=== PATIENT | female | born 1990 | race Caucasian/White ===

== ENCOUNTER 2020-08-09 14:43 | Emergency (ER) | payer OTHER | END 2020-08-09 16:40 | disposition home or self-care (01) | LOC: ERS 14:43 | DX: T75.4XXA Electrocution, initial encounter (principal); F41.9 Anxiety disorder, unspecified | CPT/HCPCS: 36415; 84484; 93005 ==

== ENCOUNTER 2021-11-19 19:21 | Emergency (ER) | payer OTHER, SELFPAY ==
[2021-11-19 20:08] LABS: Base Excess (BEa) -1.7 mEq/L (-2.0 to +3.0); CO2 Tension 38.9 mmHg (35.0-45.0); Calcium, Ionized (arterial) 1.19 mmol/L (1.12-1.30); Carboxyhemoglobin (COHb) 0.5 gm% (0.0-3.0); Hemoglobin (Hb) 12.7 g/dL (12.0-16.0); O2 Tension (PaO2), arterial 131.9 mmHg (80.0-100.0); Potassium - ABG Lab 3.74 mmol/L (3.70-5.30); pH, Arterial 7.39 (7.35-7.45)
[2021-11-19 20:17] LABS: ALV-art Gradient 19.115 mmHg (0-20); Puncture Site RRA
[2021-11-19 20:29] LABS: #Basophils 0.1 thou/uL (0.0-0.2); #Eosinphils 0.2 thou/uL (0.0-0.7); #Lymphocytes 2.3 thou/uL (1.20-3.40); #Monocytes 0.7 thou/uL (0.11-0.59); #Neutrophils 6.9 thou/uL (1.40-6.50); %Basophils 0.9 % (0.0-1.0); %Eosinophils 2.2 % (0.0-10.0); %Lymphocytes 22.6 % (21.0-51.0); %Monocytes 6.8 % (0.0-10.0); %Neutrophils 67.5 % (42.0-75.0); Mean Corpuscular HGB CONC 33.7 g/dL (32.0-36.0); Mean Corpuscular Hemoglobin 27.9 pg (27.0-31.0); Mean Corpuscular Volume 82.9 fL (78.0-98.0); Mean Platelet Volume 7.6 fL (7.4-10.4); Platelet Count 329 thou/uL (130-400); RBC Distribution Width 12.7 % (11.5-14.5); Red Blood Cell (RBC) Count 4.28 mill/uL (4.20-5.40); White Blood Cell (WBC) Count 10.1 thou/uL (4.8-10.8)
[2021-11-19 20:32] LABS: BHCG - Serum Negative (NEGATIVE); Pregs Control Background? CLEAR/WHITE (CLR/WHITE); Pregs Control Bar Appear? YES (CONTROL BAR)
[2021-11-19 20:43] LABS: ALT (SGPT) 13 U/L (8-55); AST (SGOT) 17 U/L (5-34); Albumin 4.1 g/dL (3.5-5.0); Alkaline Phosphatase 94 U/L (40-110); Anion Gap 12 mmol/L (10-20); BUN (Urea Nitrogen) 16 mg/dL (7.0-18.7); Bilirubin, Total Less than 0.2 mg/dL (0.2-1.2); Calc. Creatinine Clearance 0 mL/min (70-130); Calcium 9.5 mg/dL (7.8-10.44); Carbon Dioxide 24 mmol/L (22-29); Chloride 108 mmol/L (98-107); Globulin 3.2 g/dL (2.4-3.5); Glucose 107 mg/dL (70-105); Potassium 3.7 mmol/L (3.5-5.1); Protein, Total 7.3 g/dL (6.0-8.3); Sodium 140 mmol/L (136-145)
== END 2021-11-19 21:36 | disposition home or self-care (01) ==
LOC: ERS 19:21
DX: T59.811A Toxic effect of smoke, accidental (unintentional), initial encounter (principal)
CPT/HCPCS: 36415; 36600; 71045; 80053; 82805; 84703; 85025; J7620

== ENCOUNTER 2022-12-09 15:30 | Outpatient (CLI) | payer BC | END 2022-12-09 15:31 | disposition home or self-care (01) | LOC: BICULT 15:30 | PROVIDERS: ATTEND Family Medicine | DX: E04.9 Nontoxic goiter, unspecified (principal) | CPT/HCPCS: 76536 ==

== ENCOUNTER 2023-07-29 08:47 | Outpatient (CLI) | payer BC | END 2023-07-29 08:48 | disposition home or self-care (01) | LOC: ULT 08:47 | PROVIDERS: ATTEND Surgery | DX: R10.11 Right upper quadrant pain (principal) | CPT/HCPCS: 76705 ==

== ENCOUNTER 2025-09-08 03:58 | Inpatient (IN) | payer BC ==
[2025-09-08] MEDS ORDERED: Ondansetron PF 4 MG/2 ML Vial ONE ×2 (04:31→05:04)
[2025-09-08 05:07] LABS: BHCG - Serum Negative (NEGATIVE); Pregs Control Background? CLEAR/WHITE (CLR/WHITE); Pregs Control Bar Appear? YES (CONTROL BAR)
[2025-09-08 05:11] LABS: #Basophils 0.08 10x3/uL (0.0-0.2); #Eosinophils 0.60 10x3/uL (0.0-0.7); #Monocytes 0.37 10x3/uL (0.11-0.59); #Neutrophils 3.00 10x3/uL (1.40-6.50); %Basophils 1.2 % (0.0-1.0); %Eosinophils 8.8 % (0.0-10.0); %Lymphocytes 40.1 % (21.0-51.0); %Monocytes 5.4 % (0.0-10.0); %Neutrophils 44.1 % (42.0-75.0); Hematocrit 41.4 % (36.0-47.0); Hemoglobin 13.3 g/dL (12.0-16.0); Mean Corpuscular Hemoglobin 27.9 pg (27.0-31.0); Mean Corpuscular Volume 87.0 fL (78.0-98.0); Platelet Count 359 10x3/uL (130-400); Red Blood Cell (RBC) Count 4.76 mill/uL (4.20-5.40); White Blood Cell (WBC) Count 6.81 10x3/uL (4.8-10.8)
[2025-09-08 05:15] LABS: ALT (SGPT) 48 U/L (Less than 34); AST (SGOT) 21 U/L (11-34); Albumin 3.9 g/dL (3.1-4.5); Alkaline Phosphatase 132 U/L (40-110); Anion Gap 13 mmol/L (10-20); BUN (Urea Nitrogen) 10 mg/dL (7.0-18.7); Bilirubin, Total 0.2 mg/dL (0.3-1.2); Calc. Creatinine Clearance 0 mL/min (70-130); Calcium 9.7 mg/dL (7.8-10.44); Carbon Dioxide 25 mmol/L (22-29); Chloride 105 mmol/L (98-107); Globulin 3.2 g/dL (2.4-3.5); Glucose 98 mg/dL (70-105); Lipase 32 U/L (8-78); Potassium 4.2 mmol/L (3.5-5.1); Sodium 139 mmol/L (136-145)
[2025-09-08 05:41] LABS: Bacteria/HPF None Seen HPF (None Seen); CAUTI Indications for Culture Pelvic or flank pain; Glucose, Urine (Dipstick) Normal (Negative); Leukocyte Negative Leu/uL (Negative); Protein, Urine (Dipstick) Negative (Neg-Trace); RBC/HPF 0-3 HPF (0-3); Specific Gravity, Urine 1.023 (1.002-1.036); WBC/HPF 0-3 HPF (0-3)
[2025-09-08 05:55] LABS: Urine Culture Reflex No No
[2025-09-08 08:56] VITALS: BMI 29.2
[2025-09-08] MEDS: D5 1/2 NS w/20 mEq KCL 1,000 ML IV SCH ×2 (10:34→14:10)
[2025-09-08] MEDS: Ondansetron PF 4 MG/2 ML Vial ONE (10:35)
[2025-09-08] MEDS ORDERED: Dextrose 50% Abboject 50 ML SYRINGE SLOW IVP PRN (10:49)
[2025-09-08] MEDS ORDERED: hydrALAZINE 20 MG/ML VIAL SLOW IVP PRN (10:49)
[2025-09-08] MEDS ORDERED: Glucagon 1 MG/ML KIT IM PRN (10:49)
[2025-09-08] MEDS ORDERED: Mag-Al 1200 mg/1200 mg/30 ML UDCUP PO PRN (10:49)
[2025-09-08] MEDS ORDERED: Iopamidol-370 76% 500 ML MDV (1 ML CHARGE) ONE (11:55)
[2025-09-08] MEDS: Ondansetron PF 4 MG/2 ML Vial IVP SCH (12:07)
[2025-09-08] MEDS: Ketorolac Tromethamine 30 MG (1 mL) VIAL IVP SCH (12:15)
[2025-09-08] MEDS: Calcium Carbonate 500 MG ChewTAB PO PRN (20:59)
[2025-09-08] MEDS: Famotidine 20 MG TAB PO SCH (21:00)
[2025-09-08] MEDS: Ondansetron PF 4 MG/2 ML Vial IVP PRN (21:01)
[2025-09-08] MEDS: Famotidine/PF 20 mg/2ml Vial SLOW IVP SCH (21:01)
[2025-09-09 06:15] LABS: #Basophils 0.09 10x3/uL (0.0-0.2); #Eosinophils 0.66 10x3/uL (0.0-0.7); #Monocytes 0.69 10x3/uL (0.11-0.59); #Neutrophils 4.72 10x3/uL (1.40-6.50); %Basophils 1.2 % (0.0-1.0); %Eosinophils 9.0 % (0.0-10.0); %Lymphocytes 15.6 % (21.0-51.0); %Monocytes 9.4 % (0.0-10.0); %Neutrophils 64.5 % (42.0-75.0); Hematocrit 36.2 % (36.0-47.0); Hemoglobin 11.6 g/dL (12.0-16.0); Mean Corpuscular Hemoglobin 28.2 pg (27.0-31.0); Mean Corpuscular Volume 88.1 fL (78.0-98.0); Platelet Count 263 10x3/uL (130-400); Red Blood Cell (RBC) Count 4.11 mill/uL (4.20-5.40); White Blood Cell (WBC) Count 7.32 10x3/uL (4.8-10.8)
[2025-09-09 06:33] LABS: ALT (SGPT) 55 U/L (Less than 34); AST (SGOT) 29 U/L (11-34); Albumin 3.0 g/dL (3.1-4.5); Alkaline Phosphatase 138 U/L (40-110); Anion Gap 8 mmol/L (10-20); BUN (Urea Nitrogen) 4 mg/dL (7.0-18.7); Bilirubin, Total 0.5 mg/dL (0.3-1.2); Calc. Creatinine Clearance 139 mL/min (70-130); Calcium 8.3 mg/dL (7.8-10.44); Carbon Dioxide 25 mmol/L (22-29); Chloride 107 mmol/L (98-107); Globulin 2.7 g/dL (2.4-3.5); Glucose 109 mg/dL (70-105); Potassium 4.0 mmol/L (3.5-5.1); Sodium 136 mmol/L (136-145)
[2025-09-09] MEDS ORDERED: Mineral Oil PER (1 ML CHG) PO PRN (08:18)
[2025-09-09] MEDS: Gabapentin 300 MG CAP PO SCH (09:03)
[2025-09-09] MEDS: Pantoprazole 40 MG VIAL IVP SCH (09:04)
[2025-09-09] MEDS: MINERAL OIL 30 ML UDCUP PO PRN (10:35)
[2025-09-09] MEDS: Bisacodyl 10 MG SUPP PR PRN (15:45)
[2025-09-09] MEDS: Hyoscyamine SL 0.125 MG TAB PO PRN (20:44)
[2025-09-10 06:36] LABS: #Basophils 0.10 10x3/uL (0.0-0.2); #Eosinophils 0.67 10x3/uL (0.0-0.7); #Monocytes 0.75 10x3/uL (0.11-0.59); #Neutrophils 4.25 10x3/uL (1.40-6.50); %Basophils 1.3 % (0.0-1.0); %Eosinophils 8.9 % (0.0-10.0); %Lymphocytes 23.0 % (21.0-51.0); %Monocytes 10.0 % (0.0-10.0); %Neutrophils 56.5 % (42.0-75.0); Hematocrit 38.3 % (36.0-47.0); Hemoglobin 12.2 g/dL (12.0-16.0); Mean Corpuscular Hemoglobin 28.4 pg (27.0-31.0); Mean Corpuscular Volume 89.1 fL (78.0-98.0); Platelet Count 336 10x3/uL (130-400); Red Blood Cell (RBC) Count 4.30 mill/uL (4.20-5.40); White Blood Cell (WBC) Count 7.52 10x3/uL (4.8-10.8)
[2025-09-10 07:05] LABS: ALT (SGPT) 60 U/L (Less than 34); AST (SGOT) 33 U/L (11-34); Albumin 3.3 g/dL (3.1-4.5); Alkaline Phosphatase 234 U/L (40-110); Anion Gap 13 mmol/L (10-20); BUN (Urea Nitrogen) 5 mg/dL (7.0-18.7); Bilirubin, Total 0.6 mg/dL (0.3-1.2); Calc. Creatinine Clearance 123 mL/min (70-130); Calcium 9.2 mg/dL (7.8-10.44); Carbon Dioxide 25 mmol/L (22-29); Chloride 105 mmol/L (98-107); Globulin 3.4 g/dL (2.4-3.5); Glucose 87 mg/dL (70-105); Potassium 4.2 mmol/L (3.5-5.1); Sodium 139 mmol/L (136-145)
[2025-09-10] MEDS: GoLYTELY 4,000 ml Bottle PO SCH (09:17)
[2025-09-11 12:44] VITALS: BP 123/84; TEMP 98
== END 2025-09-11 13:53 | disposition home or self-care (01) | DRG 389 ==
LOC: ERS 03:58 → SURG A 07:20 → OBSVTOIN 10:49
PROVIDERS: ADMIT Surgery; ATTEND Surgery
DX: K56.41 Fecal impaction (principal); K81.0 Acute cholecystitis; F41.9 Anxiety disorder, unspecified; G89.18 Other acute postprocedural pain; Z98.890 Other specified postprocedural states; Z90.49 Acquired absence of other specified parts of digestive tract; Z90.710 Acquired absence of both cervix and uterus; Z88.0 Allergy status to penicillin
CPT/HCPCS: 36415; 71045; 74018; 74177; 80053; 81001; 83690; 84703; 85025; 96365; 96375; 96376; G0378; J1308; J1885; J2060; J2270; J2272; J2405; J2470; J2543; J3010; J3480; J7030; Q9967

== ENCOUNTER 2025-09-20 13:28 | Outpatient (CLI) | payer BC ==
[~2025-09-20 13:28] MED LIST: Iopamidol 370 76% 100 ML VIAL ONE
== END 2025-09-20 13:29 | disposition home or self-care (01) ==
LOC: CT 13:28
PROVIDERS: ATTEND Surgery
DX: K91.872 Postprocedural seroma of a digestive system organ or structure following a digestive system procedure (principal)
CPT/HCPCS: 74178; Q9967